=== PATIENT | male | born 1945 | race Caucasian/White ===

== ENCOUNTER → 2017-09-06 | Outpatient (CLI) | payer OTHER ==
[~2017-09-06] VITALS: Ht 176.5 cm; Wt 80.7 kg
[~2017-09-06] MED LIST: ADULT ASPIRIN R81 MG PO; AVODART0.5 MG PO; FLOMAX0.4 MG PO; PENTASA500 MG PO; PROBIOTIC1 EAC2 PO
== END | disposition home or self-care (01) ==
LOC: OPR 09-03 07:30 → RAD 09-03 08:30 → OPR 09-03 11:00
DX: G93.89 Other specified disorders of brain (principal); Z98.41 Cataract extraction status, right eye
CPT/HCPCS: 70543; J2250; J2405

== ENCOUNTER → 2017-10-02 | Outpatient (CLI) | payer OTHER ==
[~2017-10-02] VITALS: Ht 177.8 cm; Wt 81.6 kg
[2017-10-02 08:11] VITALS: BP 162/80
== END | disposition home or self-care (01) ==
LOC: OPR 07:48
DX: R22.1 Localized swelling, mass and lump, neck (principal); Z85.820 Personal history of malignant melanoma of skin; H21.81 Floppy iris syndrome; H54.7 Unspecified visual loss; H91.91 Unspecified hearing loss, right ear; M50.322 Other cervical disc degeneration at C5-C6 level; Z87.891 Personal history of nicotine dependence
CPT/HCPCS: 70543; J2250